=== PATIENT | male | born 1945 | race Two or more races ===

== ENCOUNTER 2025-02-28 08:48 | Inpatient (IN) | payer OTHER ==
[2025-02-28] VITALS (7 sets, daily range): BP systolic 164–174; BP diastolic 76–87; PULSE 68–74; RESP 15–20; TEMP 97.6–99.2; O2SAT 95–98
[~2025-02-28] VITALS: Ht 180.3 cm; Wt 89.4 kg
--- NOTE | 2025-02-28 09:24 | DVH ---
CHEST RADIOGRAPH Indication: +COVID Technique: Single frontal view of the chest was obtained COMPARISON: None FINDINGS: Lines and Tubes: Median sternotomy Lungs: Increased interstitial prominence Pleura: No effusion. No pneumothorax. Cardiomediastinal contours: Unremarkable Bones: Unremarkable IMPRESSION: Possible mild viral pneumonia
--- NOTE | 2025-02-28 10:03 | ED.PDOC ---
SOB-HPI HPI Comments A 79-YEAR-OLD MALE, WITH A PMHX OF HTN, DM, AND MO, PRESENTS TO THE ED VIA WHEELCHAIR WITH A C/C OF COUGH WITH ASSOCIATED SNEEZE, BODY ACHES, AND FATIGUE OF ONE WEEKS AGO. PATIENT REPORTS ADDITIONAL GENERAL WEAKNESS OF 5 DAYS AGO. PER DAUGHTER, PATIENT TESTED POSITIVE FOR COVID LAST WEEKEND VIA AT HOME TEST. PATIENT HAS A POSITIVE FOR COVID AGAIN THIS MORNING. PATIENT HAS NO FURTHER COMPLAINTS AT THIS TIME AND OTHERWISE DENIES FURTHER ASSOCIATED SYMPTOMS OF FEVER, CHILLS, NAUSEA, VOMITING, DIARRHEA, OR CHEST PAIN. PATIENT IS ALERT, ORIENTED X 4, AND HAS STEADY GAIT. Chief Complaint: Body Pain Time Seen by MD: 09:46 Reviewed notes: Nurses Notes, Medications, Allergies Information Source: Patient, Relative (Child) Mode of Arrival: Wheelchair Severity: Moderate Timing: Weeks Duration: Since onset, Days Context: Spontaneous Onset History of: Recent URI Prehospital treatment: None Associated Signs and Symptoms: Cough, Nasal Congestion, Other (COUGH, SNEEZE, BODY ACHES, AND FATIGUE, GENERAL WEAKNESS) If cough with SOB: Non-Productive Past Medical History PAST MEDICAL HISTORY: DM, HTN, MO Surgical History: Unknown Family History Family History: Reviewed,noncontributory to illness, No family hx of Cancer, No family hx of DM, No family hx of Heart areli, No family hx of HTN, No family hx ofKidney areli, No family hx of Liver areli, No family hx of Lung areli, No family hx of Stroke Social History Smoker: Non-Smoker Alcohol: Denies ETOH Use Drugs: Denies Drug Use Lives In: Home Constitutional: reports: fatigue, weakness; denies: chills, diaphoresis, fever, malaise, sweats, others EENTM: reports: nose congestion; denies: blurred vision, double vision, ear bleeding, ear discharge, ear drainage, ear pain, ear ringing, eye pain, eye redness, hearing loss, mouth pain, mouth swelling, nasal discharge, nose bleeding, nose pain, photophobia, tearing, throat pain, throat swelling, voice changes, others Respiratory: reports: cough, others (sneeze, nasal congestion ); denies: hemoptysis, orthopnea, SOB at rest, shortness of breath, SOB with excertion, stridor, wheezing Cardiovascular: denies: chest pain, dizzy spells, diaphoresis, Dyspnea on exertion, edema, irregular heart beat, left arm pain, lightheadedness, palpitations, PND, syncope, others Gastrointestinal: denies: abdomen distended, abdominal pain, blood streaked bowels, constipated, diarrhea, dysphagia, difficulty swallowing, hematemesis, melena, nausea, poor appetite, poor fluid intake, rectal bleeding, rectal pain, vomiting, others Genitourinary: denies: burning, dysuria, flank pain, frequency, hematuria, incontinence, penile discharge, penile sore, pain, testicle pain, testicle swelling, urgency, others Neurological: denies: dizziness, fainting, headache, left sided numbness, left sided weakness, numbness, paresthesia, pre-existing deficit, right sided numbness, right sided weakness, seizure, speech problems, tingling, tremors, weakness, others Musculoskeletal: denies: back pain, gout, joint pain, joint swelling, muscle pain, muscle stiffness, neck pain, others Integumetry: denies: bruises, change in color, change in hair/nails, dryness, laceration, lesions, lumps, rash, wounds, others Allergic/Immunocompromised: denies: Difficulty Healing, Frequent Infections, Hives, Itching, others Hematologic/Lymphatic: denies: anemia, blood clots, easy bleeding, easy bruising, swollen glands, others Endocrine: denies: excessive hunger, excessive sweating, excessive thirst, excessive urination, flushing, intolerance to cold, intolerance to heat, unexplained weight gain, unexplained weight loss, others Psychiatric: denies: anxiety, bipolar disorder, depression, hopeless, panic disorder, schizophrenia, sleepless, suicidal, others All Other Systems: Reviewed and Negative Physical Exam General Appearance: Mild Distress, Normal HEENT: Normal ENT Inspection, PERRL/EOMI, Pharynx Normal, TMs Normal Neck: Full Range of Motion, Non-Tender, Normal, Normal Inspection Respiratory: Chest Non-Tender, Expiration, No Accessory Muscle Use, No Respiratory Distress, Rhonchi Cardiovascular: No Edema, No JVD, No Murmur, No Gallop, Normal Peripheral Pulses, Regular Rate/Rhythm Breast Exam: Deferred Gastrointestinal: No Organomegaly, Non Tender, No Pulsatile Mass, Normal Bowel Sounds, Soft Genitalia: Deferred Pelvic: Deferred Rectal: Deferred Extremities: No calf tenderness, Normal capillary refill, Normal inspection, Normal range of motion, Non-tender, No pedal edema Musculoskeletal : Apperance: Normal Neurologic: Alert, commodity broker II-XII nml as Tested, No Motor Deficits, Normal Affect, Normal Mood, No Sensory Deficits Cerebellar Function: Normal Reflexes: Normal Skin: Dry, Normal Color, Warm Peripheral Pulses: 2+ carotid (R), 2+ carotid (L) Lymphatic: No Adenopathy Was a procedure done? Was a procedure done?: No Differential Dx Differential Diagnosis: Anxiety, Asthma, Bronchitis, Hypertension, Hyponatremia, Pneumonia, Sinusitis, Allergic Rhinitis, URI, Other (POSITIVE COVID INFECTION ) X-Ray, Labs, Meds, VS Vital Signs Date Time Temp Pulse Resp B/P (MAP) Pulse Ox O2 Delivery O2 Flow Rate FiO2 02/28/25 13:00 68 16 97 Room Air* 0 21 02/28/25 13:00 97 Room Air* 0 21 02/28/25 12:00 97.6 68 17 165/79 (107) 94 97.6 02/28/25 08:50 99.6 81 18 114/84 96 99.6 Lab Test 02/28/25 12:29 02/28/25 10:47 02/28/25 10:40 Range/Units POC Glucose 180 H 70-106 mg/dl White Blood Count 7.0 4.4-10.8 10^3/uL Red Blood Count 4.22 L 4.5-5.90 10^6/uL Hemoglobin 12.9 L 13.5-17.5 g/dL Hematocrit 38.6 L 41.0-53.0 % Mean Corpuscular Volume 91.3 80.0-100.0 fL Mean Corpuscular Hemoglobin 30.6 28.0-32.0 pg Mean Corpuscular Hemoglobin Concent 33.5 32.0-36.0 g/dL Red Cell Distribution Width 17.6 H 11.8-14.3 % Platelet Count 285 140-450 10^3/uL Mean Platelet Volume 8.5 6.9-10.8 fL Neutrophils (%) (Auto) 37.0-80.0 % Lymphocytes (%) (Auto) 10.0-50.0 % Monocytes (%) (Auto) 0.0-12.0 % Basophils (%) (Auto) 0.0-2.0 % Neutrophils # (Auto) 1.6-8.6 10 ^3/uL Lymphocytes # (Auto) 0.4-5.4 10 ^3/uL Monocytes # (Auto) 0-1.3 10 ^3/uL Differential Total Cells Counted 100.0 100 Neutrophils % (Manual) 54 37.0-80.0 Band Neutrophils % (Manual) 4 Lymphocytes % (Manual) 19 10.0-50.0 Monocytes % (Manual) 18 H 0-12 Eosinophils % (Manual) 5 0-7 Basophils % (Manual) 0 0.0-2.0 Metamyelocytes % (manual) 0 Myelocytes % (Manual) 0 Promyelocytes % (Manual) 0 Blast Cells % (Manual) 0 Reactive Lymphocytes 0 Platelet Estimate Adequate Erythrocyte Sedimentation Rate 14 0-20 mm/hr Sodium Level 136 136-145 mmol/L Potassium Level 4.4 3.5-5.1 mmol/L Chloride Level 102 98-107 mmol/L Carbon Dioxide Level 25 20-31 mmol/L Anion Gap 9 5-15 Blood Urea Nitrogen 6 L 9-23 mg/dL Creatinine 0.85 0.700-1.30 mg/dL Glomerular Filtration Rate Calc 88 >90 mL/min BUN/Creatinine Ratio 7.1 L 10.0-20.0 Serum Glucose 180 H 74-106 mg/dL Calcium Level 9.4 8.7-10.4 mg/dL Total Bilirubin 0.6 0.2-1.0 mg/dL Aspartate Amino Transferase (AST) 34 13-40 U/L Alanine Aminotransferase (ALT) 40 7-40 U/L Alkaline Phosphatase 99 46-116 U/L Troponin I High Sensitivity 7 </=54 ng/L C-Reactive Protein High Sensitivity 3.83 H <1.0 mg/dL B-Type Natriuretic Peptide 164.68 0-100 pg/mL Total Protein 7.5 5.7-8.2 g/dL Albumin 4.7 3.2-4.8 g/dL Vitamin B12 Level Pending Vitamin D 25-Hydroxy Pending Influenza Type A Antigen Negative Negative Influenza Type B Antigen Negative Negative SARS-CoV-2 Antigen (Rapid) Positive *A NEGATIVE Current Medications Medications (Trade) Dose Ordered Sig/Anna Route Start Time Stop Time Status Last Admin Sodium Chloride 1,000 ml @ 1,000 mls/hr Q1H ONCE IV 02/28/25 12:45 02/28/25 13:44 DC 02/28/25 13:28 Azithromycin 250 ml @ 125 mls/hr ONCE ONCE IV 02/28/25 12:45 02/28/25 14:44 DC 02/28/25 13:28 Ceftriaxone Sodium 50 ml @ 100 mls/hr ONCE ONCE IV 02/28/25 12:45 02/28/25 13:14 DC 02/28/25 13:28 [place] [id number] Ph: [phone] DIAGNOSTIC IMAGING Diagnostic Imaging Report : [id number] Signed PATIENT: CRUZITO QUIÑONEZ ACCT: [id number] UNIT: [id number] : 1945 LOC: ER ROOM / BED: / AGE / SEX: 79 / M ADM STATUS: REG ER SERVICE 0 ORDERING PHYSICIAN: ALEXIS ZAPATA PROCEDURE(s): CXR1 - CHEST XRAY 1 VIEW REASON: +COVID ORDER NUMBER(s): [id number], ACCESSION NUMBER(s): [id number] CHEST RADIOGRAPH Indication: +COVID Technique: Single frontal view of the chest was obtained COMPARISON: None FINDINGS: Lines and Tubes: Median sternotomy Lungs: Increased interstitial prominence Pleura: No effusion. No pneumothorax. Cardiomediastinal contours: Unremarkable Bones: Unremarkable IMPRESSION: Possible mild viral pneumonia X-Ray, Labs, Meds, VS Comment EXTERNAL MEDICAL RECORDS REVIEWED: [NONE] INDEPENDENT HISTORIANS: [NONE] SOCIAL DETERMINANTS OF HEALTH: [NONE] LABS ORDERED: CBC, BMB, UA, COVID REVIEWED AND INTERPRETED RESULTS: + COVID IMAGING ORDERED: CHEST XRAY DISPLAYED MILD VIRAL PNEUMONIA WITH ASSOCIATED COVID TREATMENTS ORDERED: 0.9 NS 1L, ROCEPHIN 1GM IVP AND AZITHROMYCIN 500MG IVP PROCEDURES PERFORMED: NONE CRITICAL CARE TIME: NONE I HAVE DISCUSSED THE PATIENT WITH THE ATTENDING PHYSICIAN DR. LINDSAY AND HE AGREES WITH THE PATIENT'S PLAN OF CARE AND ADMISSION. THIS IS A 79-YEAR-OLD MALE, WITH A PMHX OF HTN, DM, AND MO, WHO PRESENTS TO THE ED VIA WHEELCHAIR WITH A C/C OF COUGH WITH ASSOCIATED SNEEZE, BODY ACHES, GENERAL WEAKNESS, AND FATIGUE OF ONE WEEKS AGO. BASED OFF OF + COVID TEST AND PNEUMONIA, I HAVE DETERMINED THAT PATIENT WILL BE ADMITTED TO THE HOSPITAL FOR FURTHER CARE. Images Reviewed?: Images reviewed and evaluated by me Time of 1ST Reevaluation: 10:18 Reevaluation 1ST: Unchanged Patient Education/Counseling: Diagnosis, Treatment, Need For Follow Up Family Education/Counseling: Diagnosis, Treatment, Need For Follow Up Medical Screening: No EMC Exist At This Time SEPSIS Sepsis Screen Date sepsis recognized/suspect: Feb 28, 2025 Time Sepsis recognized/suspect: 852 Recent Procedure: No On Antibiotic Therapy: No Respiratory Rate >20: No Heart Rate >90: No Temp<36 C (96.8 F) or >38.3 C: No SBP <90 or MAP <65 mmHG: No New Acute Mental Status Change: No Is the patient on CPAP, BIPAP,: No Physician Orders Chest Xray 1 View (02/28/25 09:01) Urinalysis (02/28/25 09:41) Electrocardigram (02/28/25 09:41) Heplock Iv (02/28/25 ) Electrocardigram (02/28/25 12:56) Vital Signs Date Time Temp Pulse Resp B/P (MAP) Pulse Ox O2 Delivery O2 Flow Rate FiO2 02/28/25 13:00 68 16 97 Room Air* 0 21 02/28/25 13:00 97 Room Air* 0 21 02/28/25 12:00 97.6 68 17 165/79 (107) 94 97.6 02/28/25 08:50 99.6 81 18 114/84 96 99.6 Laboratory Tests Test 02/28/25 10:47 White Blood Count 7.0 10^3/uL (4.4-10.8) Medications Medications Dose Ordered Sig/Anna Route Start Time Stop Time Status Last Admin Dose Admin Azithromycin 250 ml @ 125 mls/hr ONCE ONCE IV 02/28/25 12:45 02/28/25 14:44 DC 02/28/25 13:28 Ceftriaxone Sodium 50 ml @ 100 mls/hr ONCE ONCE IV 02/28/25 12:45 02/28/25 13:14 DC 02/28/25 13:28 Sodium Chloride 1,000 ml @ 1,000 mls/hr Q1H ONCE IV 02/28/25 12:45 8/16/25 13:44 DC 02/28/25 13:28 Departure 1 Departure Time of Disposition: 12:35 Impression: Primary Impression: SARS-CoV-2 positive Additional Impressions: General weakness Viral pneumonia Disposition: ADMITTED INPATIENT Condition: Serious Additional Instructions: Critical Care Note Critical Care Time?: No Stability Stability form required: Yes Unstable for transfer: Requires medication, ED Physician Assesment, Possible rapid decline Heart Score Heart Score: Heart Score Response (Comments) Value History Slightly Suspicious 0 EKG N/A 0 Age >65 2 Risk Factors N/A 0 Troponin N/A 0 Total 2 I personally scribed for BENNYHANNAA PA ([email or web address]) on 02/28/25 at 10:03. Electronically submitted by Sofya Cleveland ([employer]). I personally scribed for BENNYSHONNAXIA PA ([email or web address]) on 02/28/25 at 10:04. Electronically submitted by Sofya Cleveland ([employer]). I personally scribed for BENNYYINXIA PA ([email or web address]) on 02/28/25 at 10:05. Electronically submitted by Sofya Cleveland ([employer]). I personally scribed for BENNYYINXIA PA ([email or web address]) on 02/28/25 at 12:46. Electronically submitted by Sofya Cleveland ([employer]). I personally scribed for BENNYSHONNAXIA PA ([email or web address]) on 02/28/25 at 15:37. Electronically submitted by Sofya Cleveland ([employer]). BENNYSHONNAXIA PA Feb 28, 2025 10:03
[2025-02-28 11:15] LABS: Hematocrit 38.6 % (41.0-53.0); Hemoglobin 12.9 g/dL (13.5-17.5); Mean Corpuscular Hemoglobin 30.6 pg (28.0-32.0); Mean Corpuscular Volume 91.3 fL (80.0-100.0)
[2025-02-28 11:37] LABS: Alanine Aminotransferase 40 U/L (7-40); Albumin 4.7 g/dL (3.2-4.8); Alkaline Phosphatase 99 U/L (46-116); Anion Gap 9 (5-15); BUN/Creatinine Ratio 7.1 (10.0-20.0); Bilirubin, Total 0.6 mg/dL (0.2-1.0); Blood Urea Nitrogen 6 mg/dL (9-23); Calcium 9.4 mg/dL (8.7-10.4); Carbon Dioxide 25 mmol/L (20-31); Chloride 102 mmol/L (98-107); Glucose 180 mg/dL (74-106); Potassium 4.4 mmol/L (3.5-5.1); Sodium 136 mmol/L (136-145); Total Protein 7.5 g/dL (5.7-8.2)
[2025-02-28 11:40] LABS: Total Cells Counted 100.0 (100)
[2025-02-28 12:23] LABS: COVID19 ANTIGEN SOFIA FIA POSITIVE (NEGATIVE)
--- NOTE | 2025-02-28 13:09 | DVHHPRES ---
History of Present Illness Resident Creating Document: ISAIAS BREEN RESIDENT History of Present Illness Mr. Gonzalez is 79-year-old male with possible heart failure with reduced ejection fraction, diabetes mellitus type 2, hypertension, CAD status post 2023 who was brought in by her daughter for the evaluation of body aches, generalized weakness, runny nose and a cough. Patient lives in [place], took a flight to [place] to meet her daughter 6 days back and started experiencing for muscle sores,, body ache fatigue a day later, patient was tested positive for COVID, and since then he has been experiencing low appetite and has been getting more tired. Has been experiencing low-grade fever but denies chills, nausea, vomiting, shortness of breaths at this time. Patient does have trace pitting edema. Patient got [employer] vaccine for COVID 19 in 2020 and 2021 Past medical history:possible heart failure with reduced ejection fraction, diabetes mellitus type 2, hypertension, CAD status post 2023 Past surgical history: CAD status post 1 Home medications: Losartan 100 mg b.i.d., amlodipine 10 mg HS, metoprolol succinate 100 mg daily, sitagliptin 100 mg daily, spironolactone 25 mg daily, atorvastatin 20 mg daily PCP: Ed Michel, renal case manager Ed Michel Social history: Lives in [place], which has been daughter in , quit smoking 1970s, former heavy smoker, denies drinking or drug use Patient seen and examined in the ER with 3. With bilateral basilar crackles and trace pitting edema. On room air. Smoke: Quit ALCOHOL: none Drugs: None Lives: with Family Review of Systems Constitutional: Yes: Weakness Respiratory: Cough, Dry, Shortness of breath Cardiovascular: Edema Allergies: Coded Allergies: NO KNOWN ALLERGIES (Unverified , 03/01/25) as per patient Exam Vital Signs Vital Signs Date Time Temp Pulse Resp B/P (MAP) Pulse Ox O2 Delivery O2 Flow Rate FiO2 02/28/25 12:00 97.6 68 17 165/79 (107) 94 97.6 Exam Elderly male patient lying comfortably in the bed, no acute distress General: Well-built, afebrile, mild scleral icterus seen, mucosae are moist Cardiovascular: Regular S1 and S2. No murmurs, gallops or rubs. No JVD elevation. Trace bilateral pitting edema Respiratory: Bilateral basilar coarse crackles heard on auscultation, on room air Abdomen: Soft, nontender, nondistended, normoactive bowel sounds, no rebound tenderness, no organomegaly, no masses Genitourinary: Deferred MSK/skin: Mobilizes 4 limbs. Skin is dry and warm Neurological: No motor, no sensitive deficits, normal speech. Pupils are isocoric and reactive. Psych/Mental Status: A/Ox3 Labs/Xrays Labs Test 02/28/25 12:29 02/28/25 10:47 02/28/25 10:40 Range/Units POC Glucose 180 H 70-106 mg/dl White Blood Count 7.0 4.4-10.8 10^3/uL Red Blood Count 4.22 L 4.5-5.90 10^6/uL Hemoglobin 12.9 L 13.5-17.5 g/dL Hematocrit 38.6 L 41.0-53.0 % Mean Corpuscular Volume 91.3 80.0-100.0 fL Mean Corpuscular Hemoglobin 30.6 28.0-32.0 pg Mean Corpuscular Hemoglobin Concent 33.5 32.0-36.0 g/dL Red Cell Distribution Width 17.6 H 11.8-14.3 % Platelet Count 285 140-450 10^3/uL Mean Platelet Volume 8.5 6.9-10.8 fL Neutrophils (%) (Auto) 37.0-80.0 % Lymphocytes (%) (Auto) 10.0-50.0 % Monocytes (%) (Auto) 0.0-12.0 % Basophils (%) (Auto) 0.0-2.0 % Neutrophils # (Auto) 1.6-8.6 10 ^3/uL Lymphocytes # (Auto) 0.4-5.4 10 ^3/uL Monocytes # (Auto) 0-1.3 10 ^3/uL Differential Total Cells Counted 100.0 100 Neutrophils % (Manual) 54 37.0-80.0 Band Neutrophils % (Manual) 4 Lymphocytes % (Manual) 19 10.0-50.0 Monocytes % (Manual) 18 H 0-12 Eosinophils % (Manual) 5 0-7 Basophils % (Manual) 0 0.0-2.0 Metamyelocytes % (manual) 0 Myelocytes % (Manual) 0 Promyelocytes % (Manual) 0 Blast Cells % (Manual) 0 Reactive Lymphocytes 0 Platelet Estimate Adequate Sodium Level 136 136-145 mmol/L Potassium Level 4.4 3.5-5.1 mmol/L Chloride Level 102 98-107 mmol/L Carbon Dioxide Level 25 20-31 mmol/L Anion Gap 9 5-15 Blood Urea Nitrogen 6 L 9-23 mg/dL Creatinine 0.85 0.700-1.30 mg/dL Glomerular Filtration Rate Calc 88 >90 mL/min BUN/Creatinine Ratio 7.1 L 10.0-20.0 Serum Glucose 180 H 74-106 mg/dL Calcium Level 9.4 8.7-10.4 mg/dL Total Bilirubin 0.6 0.2-1.0 mg/dL Aspartate Amino Transferase (AST) 34 13-40 U/L Alanine Aminotransferase (ALT) 40 7-40 U/L Alkaline Phosphatase 99 46-116 U/L Troponin I High Sensitivity 7 </=54 ng/L Total Protein 7.5 5.7-8.2 g/dL Albumin 4.7 3.2-4.8 g/dL Influenza Type A Antigen Negative Negative Influenza Type B Antigen Negative Negative SARS-CoV-2 Antigen (Rapid) Positive *A NEGATIVE SEPSIS Sepsis Screen Date sepsis recognized/suspect: Feb 28, 2025 Time Sepsis recognized/suspect: 0853 Recent Procedure: No On Antibiotic Therapy: No Respiratory Rate >20: No Heart Rate >90: No Temp<36 C (96.8 F) or >38.3 C: No SBP <90 or MAP <65 mmHG: No New Acute Mental Status Change: No Is the patient on CPAP, BIPAP,: No Physician Orders Chest Xray 1 View (02/28/25 09:01) Urinalysis (02/28/25 09:41) Electrocardigram (02/28/25 09:41) Heplock Iv (02/28/25 ) Sodium Chloride 0.9% (02/28/25 12:45) Azithromycin 500mg/ 250ml (Zithromax 50 (02/28/25 12:45) Ceftriaxone 1gm/50ml D5w (Rocephin) (02/28/25 12:45) Electrocardigram (02/28/25 12:56) Vital Signs Date Time Temp Pulse Resp B/P (MAP) Pulse Ox O2 Delivery O2 Flow Rate FiO2 02/28/25 12:00 97.6 68 17 165/79 (107) 94 97.6 02/28/25 08:50 99.6 81 18 114/84 96 99.6 Laboratory Tests Test 02/28/25 10:47 White Blood Count 7.0 10^3/uL (4.4-10.8) Assessment/Plan Assessment/Plan Sepsis d/t Superimposed Gram-positive and Gram-negative pneumonia Acute COVID-19 infection On room air IV ceftriaxone and IV azithromycin 02/28 MRSA nares pending COVID positive Flu negative Nebulized treatments q.6 hourly Sputum culture pending 500ml NS at 100ml/hr lactic 2.3 Likely Acute on chronic systolic congestive heart failure exacerbation-NYHA class 3-secondary to above Hypertensive heart disease History of CAD with 1 2023 BNP pending EKG pending Troponins unremarkable Strict I&Os Chest x-ray shows congestion Echocardiogram pending Continue guideline directed medical therapy with losartan, metoprolol, spironolactone lasix after getting euvolemia Diabetes mellitus type 2-A1c unknown Holding patient's home medication sitagliptin Mild ISS A1c pending Dyslipidemia Atorvastatin 20 mg HS Former nicotine dependence Counseled regarding cessation for more than 15 minutes DVT prophylaxis: Lovenox 40 mg sc daily Plan discussed with patient, daughter at ER in which all questions have been answered Goals of care discussed with patient in detail, for more than 18 minutes, full code status. Case discussed with Plan discussed with: Patient, Daughter (at er) My Orders Orders - ISAIAS BREEN Procedure Category Date Status Time Electrocardigram EKG 02/28/25 Logged 12:56 Date of Service: Feb 28, 2025 Billing Provider: GAETANO BETANCUR MD Common Visit Codes: [id number] INP/OBS CARE (HIGH) ISAIAS BREEN Feb 28, 2025 13:09 GAETANO BETANCUR MD Mar 04, 2025 22:55
[2025-02-28] MEDS: cefTRIAXone 1GM/50ML D5W 50 ML IV ONE (13:28)
[2025-02-28] MEDS: SODIUM CHLORIDE 0.9% 1,000 ML IV ONE (13:28)
[2025-02-28] MEDS: AZITHROMYCIN 500MG/ 250ML 250 ML IV ONE (13:28)
[2025-02-28] MEDS ORDERED: ALBUTEROL SULF 2.5 MG/0.5ML(0.5%) NEB SOLN NEB SCH (14:00)
[2025-02-28] MEDS ORDERED: HYDROcodone-ACET 5/325MG TAB PO PRN (14:00)
[2025-02-28] MEDS ORDERED: IPRATROPIUM BROM 0.5 MG/2.5ML INH SOL NEB SCH (14:00)
[2025-02-28] MEDS ORDERED: MORPHINE SULFATE INJ 2 MG/ml SYRG IV PRN (14:00)
[2025-02-28 14:41] LABS: Lactic Acid w/Reflex 2.3 mmol/L (0.4-2.0)
[2025-02-28] MEDS ORDERED: SODIUM CHLORIDE 0.9% 500 ML IV ONE ×2 (15:30→15:45)
[2025-02-28] MEDS ORDERED: METOPROLOL SUCCINATE XL 50 MG TAB PO ONE (15:45)
[2025-02-28] MEDS ORDERED: LOSARTAN POTASSIUM 50 MG TAB PO ONE (15:45)
[2025-02-28 16:57] LABS: INR 1.08 (0.9-1.15); Partial Thromboplastin Time 30.3 SEC (24.5-34.5); Prothrombin Time 11.4 sec (9.3-11.8)
[2025-03-01] VITALS (12 sets, daily range): BP systolic 158–184; BP diastolic 79–98; PULSE 64–82; RESP 14–20; TEMP 98–98.9; O2SAT 90–98
[2025-03-01] MEDS: ATORVASTATIN 20 MG TAB PO SCH (00:21)
[2025-03-01] MEDS: ALBUTEROL SULF HFA 90MCG INH 200DOSE IN SCH (02:44)
[2025-03-01 08:06] LABS: Hematocrit 37.1 % (41.0-53.0); Hemoglobin 12.5 g/dL (13.5-17.5); Mean Corpuscular Hemoglobin 30.5 pg (28.0-32.0); Mean Corpuscular Volume 91.1 fL (80.0-100.0)
[2025-03-01 08:17] LABS: Anion Gap 9 (5-15); Calcium 9.3 mg/dL (8.7-10.4); Carbon Dioxide 26 mmol/L (20-31); Chloride 101 mmol/L (98-107); Potassium 4.0 mmol/L (3.5-5.1); Sodium 136 mmol/L (136-145)
[2025-03-01 08:23] LABS: BUN/Creatinine Ratio 10.3 (10.0-20.0); Blood Urea Nitrogen 8 mg/dL (9-23); Glucose 139 mg/dL (74-106)
[2025-03-01 08:35] LABS: Total Cells Counted 100.0 (100)
[2025-03-01] MEDS: SPIRONOLACTONE 25 MG TAB PO SCH (09:17)
[2025-03-01] MEDS: cefTRIAXone 1GM/50ML D5W 50 ML IV SCH (09:17)
[2025-03-01] MEDS: LOSARTAN POTASSIUM 50 MG TAB PO SCH (09:18)
[2025-03-01] MEDS: METOPROLOL SUCCINATE XL 50 MG TAB PO SCH (09:18)
[2025-03-01] MEDS: DOXYCYCLINE 100MG/100ML 100 ML IV SCH (12:45)
[2025-03-01] MEDS: hydrALAZINE HCL 20 MG/ML VL IV PRN (13:26)
--- NOTE | 2025-03-01 16:32 | DVHPN2 ---
Subjective Patient was seen and evaluated by me currently on respiratory isolation for COVID-19 pneumonia. Plan of care discussed with the patient's bedside RN as well as patient's daughter at bedside. Patient is currently denies any shortness of breath does complaining of some nasal stuffiness. Changes from previous H/P or p: No Changes Cardiovascular: Edema Respiratory: Cough, Dry, Shortness of breath Objective Vitals Vital Signs Date Time Temp Pulse Resp B/P (MAP) Pulse Ox O2 Delivery O2 Flow Rate FiO2 03/01/25 14:15 97 Room Air 0.0 03/01/25 14:15 21 03/01/25 14:15 78 16 03/01/25 13:26 184/89 03/01/25 13:03 98.1 98.1 Intake/Output Intake and Output 03/01/25 07:00 Intake Total 1860 ml Output Total 900 ml Balance 960 ml Intake Oral 560 ml IV Total 1300 ml Output Urine Total 900 ml # Voids 1 Exam HEENT pupils are reactive Neck is supple CV is S1-S2 regular rate and rhythm Respiratory diminished breath sounds bases GI positive bowel sound Extremity no edema RELIGIOUS EDUCATION COORDINATOR no motor deficit. Medications Current Medications Medications Dose Ordered Sig/Anna Route Start Time Stop Time Status Last Admin Dose Admin Ceftriaxone Sodium 50 ml @ 100 mls/hr DAILY@09 IV 03/01/25 09:00 03/01/25 09:17 100 MLS/HR Losartan Potassium 100 mg DAILY PO 03/01/25 10:00 03/01/25 09:18 100 MG Metoprolol Succinate 50 mg DAILY PO 03/01/25 10:00 03/01/25 09:18 50 MG Spironolactone 25 mg DAILY PO 03/01/25 10:00 03/01/25 09:17 25 MG Atorvastatin Calcium 20 mg HS PO 02/28/25 22:00 03/01/25 00:21 20 MG Ipratropium [place] 0.5 mg Q6HWA NEB 02/28/25 14:00 UNV Albuterol 2.5 mg Q6HR NEB 02/28/25 14:00 UNV Acetaminophen 500 mg Q4HPRN PRN PO 02/28/25 14:00 Acetaminophen/ Hydrocodone Bitart 1 tab Q6HPRN PRN PO 02/28/25 14:00 Morphine Sulfate 1 mg Q4HPRN PRN IV 02/28/25 14:00 Albuterol 180 mcg TID IN 02/28/25 22:00 03/01/25 14:15 180 MCG Doxycycline Hyclate 100 ml @ 50 mls/hr Q12H IV 03/01/25 12:45 03/01/25 12:45 50 MLS/HR Hydralazine HCl 10 mg Q4HP PRN IV 03/01/25 12:45 03/01/25 13:26 10 MG Laboratory Results Laboratory Tests 03/01/25 05:40 Chemistry Test 03/01/25 05:40 Calcium Level 9.3 mg/dL (8.7-10.4) Microbiology Microbiology Date/Time Source Procedure Growth Status 03/01/25 00:27 Nose MRSA Screen - Final Complete Assessment/Plan Assessment/Plan 79-year-old male with a known history of CAD status post PCI with a one drug eluting stent, diabetes mellitus type 2, hypertension, dyslipidemia , congestive heart failure initially presented to the hospital with shortness of breaths , cough, sneezing, flu-like symptoms found to have 1. Acute viral pneumonia with a positive COVID-19 2. Suspected Gram-positive/Gram-negative pneumonia 3. CAD status post PCI with a one drugs eluting stent 4. Congestive heart failure unspecified currently not in exacerbation 5. Diabetes mellitus type 2 6. Hypertension 7. Dyslipidemia -continue current medication, IV antibiotics, respiratory isolation, -patient is currently on room air, no indication for any COVID-19 treatment besides vitamin supplements. Plan discussed with: Patient, Daughter My Orders Orders - EVER RECIO MD Procedure Category Date Status Time Doxycycline PHA 03/01/25 In Process 100mg/100ml 12:45 Hydralazine Injection PHA 03/01/25 In Process (Apresoline Inject 12:45 * Infectious [place]- CONS 03/01/25 Transmitted Erick Case 12:37 Date of Service: Mar 01, 2025 Billing Provider: EVER RECIO MD Common Visit Codes: [id number] INP/OBS CARE(MOD) EVER RECIO MD Mar 01, 2025 16:32
[2025-03-01] MEDS: CHOLECALCIFEROL (VITD3) 1,000UNIT=25mCg TAB PO SCH (17:11)
[2025-03-01] MEDS: ZINC SULFATE 220mg CAP or TAB PO ONE (17:12)
[2025-03-01] MEDS: ASCORBIC ACID 500 MG TAB PO SCH (17:12)
--- NOTE | 2025-03-01 20:50 | DVHSR ---
APPROVED REPORT EXAM: Two-dimensional and M-mode echocardiogram with Doppler and color Doppler. Blood Pressure: 159/91 mmHg INDICATION Congestion Hx of CAD Surgery/Intervention CABG: RISK FACTORS Height: 5' 11", Weight: 194 DIMENSIONS LVDd4.4 (3.8-5.7cm)LA (2D)4.3 (1.9-4.0cm)Aortic Root3.7 (2.0-3.7cm) LVDs3.3 (2.5-4.0cm)LA (MM) (1.9-4.0cm)Aortic Cusp Exc1.7 (1.5-2.0cm) EF (%) 50.0 (55-70%)Rt. Atrium4.3 (1.9-4.0cm)Asc. Aorta cm IVSd1.3 (0.7-1.1cm)RV (D) (1.8-2.4cm) PWd1.3 (0.7-1.1cm) Mitral Valve MitralMitral Stenosis E wave0.50m/sMV Mean GR.mmHg A wave0.60m/sMV Peak GR.mmHg E/A ratio0.82D MVAcm2 Aortic Valve Aortic ValveAortic Stenosis V10.70m/Sharyn Mean GR.3mmHg V21.20m/Sharyn Peak GR.6mmHg LVOT Diameter2.5 (1.8-2.4cm)Doppler AVA2.86cm2 AI P 1/2 Nmgq820.13ms Pulmonic Valve V20.50m/s Tricuspid Valve TR Velocity2.10m/s [id number] Conclusion LOW NORMAL LV EJECTION FRACTION AND IS 50% SLIGHTLY DILATED LA AND RA RVSP IS NORMAL CALCIFIED AORTIC LEAFLETS NO EFFUSION NORMAL MV,TV AND PV
[2025-03-02] VITALS (11 sets, daily range): BP systolic 149–185; BP diastolic 64–85; PULSE 75–98; RESP 14–18; TEMP 97.8–98.8; O2SAT 93–99
[2025-03-02] MEDS: ZINC SULFATE 220mg CAP or TAB PO SCH (09:01)
--- NOTE | 2025-03-02 11:56 | DVHINCON2 ---
Date of service: Mar 02, 2025 Family History: Alcoholism Cardiovascular disease G8 MOTHER G8 FATHER Allergies: Coded Allergies: NO KNOWN ALLERGIES (Unverified , 03/01/25) as per patient Home Meds Active Scripts Albuterol Sulfate (VENTOLIN MDI) 90 Mcg Ih, 90 MCG IN Q4HP PRN, #1 INH Prov:EVER RECIO MD 03/02/25 Doxycycline (Monohydrate) (Doxycycline) 100 Mg Cap, 100 MG PO BID, #14 CAP Prov:EVER RECIO MD 03/02/25 Current Medications Current Medications Medications (Trade) Dose Ordered Sig/Anna Route PRN Reason Start Time Stop Time Status Last Admin Doxycycline Hyclate 100 ml @ 50 mls/hr Q12H IV 03/01/25 12:45 03/01/25 21:14 Hydralazine HCl (Apresoline Injection) 10 mg Q4HP PRN IV SBP>160 03/01/25 12:45 03/02/25 05:25 Cholecalciferol (Vitamin D3 Tablet) 4,000 unit DAILY PO 03/01/25 16:45 03/02/25 09:00 Ascorbic Acid (Vitamin C Tablet) 1,000 mg DAILY PO 03/01/25 16:45 03/02/25 09:01 Zinc Sulfate 220 mg DAILY PO 03/02/25 10:00 03/02/25 09:01 Vital Signs Vital Signs Date Time Temp Pulse Resp B/P (MAP) Pulse Ox O2 Delivery O2 Flow Rate FiO2 03/02/25 10:25 95 Room Air* 0 21 03/02/25 09:02 94 149/73 03/02/25 09:00 98.2 18 98.2 Labs/Diagnostic Data Labs Test 03/01/25 05:40 02/28/25 16:26 02/28/25 14:05 02/28/25 12:29 Range/Units White Blood Count 5.2 # 4.4-10.8 10^3/uL Red Blood Count 4.08 L 4.5-5.90 10^6/uL Hemoglobin 12.5 L 13.5-17.5 g/dL Hematocrit 37.1 L 41.0-53.0 % Mean Corpuscular Volume 91.1 80.0-100.0 fL Mean Corpuscular Hemoglobin 30.5 28.0-32.0 pg Mean Corpuscular Hemoglobin Concent 33.5 32.0-36.0 g/dL Red Cell Distribution Width 17.7 H 11.8-14.3 % Platelet Count 267 140-450 10^3/uL Mean Platelet Volume 8.7 6.9-10.8 fL Neutrophils (%) (Auto) 37.0-80.0 % Lymphocytes (%) (Auto) 10.0-50.0 % Monocytes (%) (Auto) 0.0-12.0 % Basophils (%) (Auto) 0.0-2.0 % Neutrophils # (Auto) 1.6-8.6 10 ^3/uL Lymphocytes # (Auto) 0.4-5.4 10 ^3/uL Monocytes # (Auto) 0-1.3 10 ^3/uL Differential Total Cells Counted 100.0 100 Neutrophils % (Manual) 37 37.0-80.0 Band Neutrophils % (Manual) 3 Lymphocytes % (Manual) 32 10.0-50.0 Monocytes % (Manual) 20 H 0-12 Eosinophils % (Manual) 8 H 0-7 Basophils % (Manual) 0 0.0-2.0 Metamyelocytes % (manual) 0 Myelocytes % (Manual) 0 Promyelocytes % (Manual) 0 Blast Cells % (Manual) 0 Reactive Lymphocytes 0 Platelet Estimate Adequate Sodium Level 136 136-145 mmol/L Potassium Level 4.0 3.5-5.1 mmol/L Chloride Level 101 98-107 mmol/L Carbon Dioxide Level 26 20-31 mmol/L Anion Gap 9 5-15 Blood Urea Nitrogen 8 L 9-23 mg/dL Creatinine 0.78 0.700-1.30 mg/dL Glomerular Filtration Rate Calc 91 >90 mL/min BUN/Creatinine Ratio 10.3 10.0-20.0 Serum Glucose 139 H 74-106 mg/dL Calcium Level 9.3 8.7-10.4 mg/dL Prothrombin Time 11.4 9.3-11.8 sec Prothrombin Time INR 1.08 0.9-1.15 Activated Partial Thromboplast Time 30.3 24.5-34.5 SEC Lactic Acid Level 0.9 0.4-2.0 mmol/L Hemoglobin A1c 6.0 H <5.7 % A1C Magnesium Level 1.8 1.6-2.6 mg/dL Thyroid Stimulating Hormone (TSH) 0.60 0.55-4.78 uIU/mL POC Glucose 180 H 70-106 mg/dl Test 02/28/25 10:47 02/28/25 10:40 Range/Units Erythrocyte Sedimentation Rate 14 0-20 mm/hr Total Bilirubin 0.6 0.2-1.0 mg/dL Aspartate Amino Transferase (AST) 34 13-40 U/L Alanine Aminotransferase (ALT) 40 7-40 U/L Alkaline Phosphatase 99 46-116 U/L Troponin I High Sensitivity 7 </=54 ng/L C-Reactive Protein High Sensitivity 3.83 H <1.0 mg/dL B-Type Natriuretic Peptide 164.68 0-100 pg/mL Total Protein 7.5 5.7-8.2 g/dL Albumin 4.7 3.2-4.8 g/dL Vitamin B12 Level 450 211-911 pg/mL Vitamin D 25-Hydroxy 31.2 30.0-100 ng/mL Influenza Type A Antigen Negative Negative Influenza Type B Antigen Negative Negative SARS-CoV-2 Antigen (Rapid) Positive *A NEGATIVE Microbiology Date/Time Source Procedure Growth Status 03/01/25 00:27 Nose MRSA Screen - Final Complete Problems(with codes): (1) General weakness (2) Viral pneumonia (3) SARS-CoV-2 positive Plan/Recommendation ASSESSMENT AND PLAN: ID Problem List: \\-- Congestive heart failure (reduced ejection fraction, history of CHF exacerbation) \\-- Diabetes mellitus type 2 \\-- Coronary artery disease (history of drug-eluting stent placement in 2023) \\-- Recent COVID-19 infection (now negative) \\-- Possible COVID or community-acquired pneumonia Assessment: This is a 79 y.o. male with a past medical history of CHF (reduced EF), type 2 diabetes, coronary artery disease s/p drug-eluting stent (2023), who presents with generalized body aches, weakness, runny nose, cough, fatigue, low appetite, and increased tiredness, following recent travel to [place] to visit his daughter. Onset of symptoms began approximately six days ago. Patient was initially COVID-19 positive on 02/28/2025, but repeat testing on 03/02/2025 is now negative. He was afebrile, with hypoxia absent on current exam (O2 sat 94% on room air). On exam, there is trace bilateral pitting edema and pulmonary crackles. Labs reveal normal white blood cell count and renal function. Chest X-ray showed mild viral pneumonia initially; repeat imaging shows no acute disease. Influenza A and B are negative. Echocardiogram on 03/01 reveals normal EF (50%), slightly dilated left atrium and right ventricle, RVSP normal, calcified aortic leaflets. Patient is being managed empirically for pneumonia with ceftriaxone and doxycycline to complete a five-day course, as superimposed bacterial pneumonia is in the differential. Patient is monitored for clinical stability. No remdesivir or steroid therapy initiated at this time, as there are no indications for such (hypoxia, fever, increasing clinical severity). Continue to defer to the primary team for management of CHF exacerbation. If patient becomes hypoxic, febrile, or hypertensive, initiate steroids and consider remdesivir as appropriate. Plan: \\-- Continue ceftriaxone and doxycycline to complete 5-day course for presumed community-acquired pneumonia. \\-- Monitor for clinical decompensation: hypoxia, fever, or new clinical symptoms. \\-- Hold remdesivir and steroids unless patient becomes hypoxic, febrile, or hypertensive. \\-- Defer CHF exacerbation management to primary team. \\-- No further [id number] therapies indicated at present. \\-- Discharge may be considered if patient remains clinically stable and comple ortega course of antibiotics. Isolation Precautions: Standard \\*Assessment and plan were discussed with the patient as written above \\*Plan is subject to change pending incorporation of new incoming information/diagnostics. Updates may be added as addendum at the bottom (OR TOP) of this note Thank you for interesting consult. ID will continue to follow. Please contact Infectious Disease for any questions or concerns. Sam Case M.D. [facility] Ph: ? Teams text: [email or web address] Electronically signed by: Sam Case MD, 03/02/2025 \\ History: The patient's chart and medications were reviewed in detail and the patient was seen and examined. History obtained from: patient Mr. Rodri Gonzalez is a 79 y.o. male with a past medical history of CHF (reduced EF), type 2 diabetes, coronary artery disease s/p drug-eluting stent in 2023, who presents with body aches, generalized weakness, runny nose, cough, fatigue, and decreased appetite following recent travel to [place]. Onset of symptoms approximately six days ago. Tested positive for COVID-19 initially, now negative. Denies fever. Noted to have trace pitting edema and pulmonary crackles on exam. Review of Systems: A complete 10-system review of systems was completed and negative except as noted in the HPI or here. ROS: -CONSTITUTIONAL: Admits fatigue, muscle aches, low appetite. Denies weight loss, fever, and chills. -HEENT: Denies changes in vision and hearing. -RESPIRATORY: Admits cough, runny nose. Denies shortness of breath. -CARDIOVASCULAR: Denies chest pain or palpitations. -GASTROINTESTINAL: Denies abdominal pain, nausea, vomiting, and diarrhea. -GENITOURINARY: Denies dysuria and urinary frequency. -MUSCULOSKELETAL: Admits generalized muscle aches. Denies joint pain. -SKIN: Denies rash and pruritus. -NEUROLOGICAL: Denies headache and syncope. -PSYCHIATRIC: Denies recent changes in mood, anxiety, or depression. Past Medical History: Diagnosis Date Congestive heart failure (reduced ejection fraction) Diabetes mellitus type 2 Coronary artery disease, s/p drug-eluting stent (2023) Past Surgical History: History reviewed. No pertinent surgical history. Home Medications: Prior to Admission medications Medication Sig losartan Dose/frequency not specified amlodipine Dose/frequency not specified metoprolol Dose/frequency not specified sitagliptin Dose/frequency not specified (likely "sitagliptin," corrected spelling) spironolactone Dose/frequency not specified atorvastatin Dose/frequency not specified Patient not taking: Not specified Allergies: No Known Allergies Family History: Not provided in transcript. Social History: Social History Socioeconomic History Marital status: Not provided Number of children: Not provided Years of education: Not provided Highest education level: Not provided Occupational History Not provided Tobacco Use Former smoker, quit in Substance and Sexual Activity Alcohol use: Not specified Drug use: Denied IV drug use: Denied Other Topics Concern Not provided Social Determinants of Health: Not provided in transcript. Objective: Vital Signs on Arrival: Temp: 97.6 F BP: 165/79 Pulse: 68 Resp: 17 SpO2: 94% (room air) Most Recent Vital Signs: Not provided in transcript. Admission Weight: Not provided in transcript. BMI: Not provided in transcript. Physical Exam: General: NAD Neck: Supple. No masses. HEENT: PERRL. Normal lids and conjunctiva. Moist mucous membranes. Oropharynx without lesions, exudates or excessive erythema. Normal appearance of the external aspects of the nose and ears. Heart: Regular rhythm, normal rate. No murmur. Trace bilateral pitting edema. Lungs: Normal respiratory effort. Crackles present bilaterally. No wheezes. Abdomen: Soft. Non-tender. Non-distended. No masses or abdominal hernia. Msk: No digital cyanosis. Normal strength and tone in all 4 limbs Skin: Warm and dry, no rashes. Neuro: Alert. No facial droop or slurred speech. Extra-ocular movements intact. Sensation intact to soft touch in all 4 limbs. Psych: Appropriate mood. Full affect. Oriented to person, place, time, and situation. Lines: Active Lines: Not provided in transcript. Diagnostic Studies: Available diagnostic studies were reviewed personally. Significant relevant results and findings are outlined below or addressed in the Assessment and Plan above. Pertinent Imaging: Recent Results Chest X-ray Initial shows mild viral pneumonia Repeat chest X-ray shows no acute disease Echocardiogram (03/01/2025) Normal ejection fraction (50%), slightly dilated left atrium and right ventricle, RVSP normal, calcified aortic valve leaflets Laboratory Findings: -COVID-19: Positive on 02/28/2025, negative on 03/02/2025 -Influenza A/B: Negative -Sodium: 136 -BUN: 8 -Creatinine: 0.78 -WBC: 7 -Platelet: 285 -Hemoglobin: 12.9 -Urinalysis: Negative Electronically signed by: Sam Case MD, 03/02/2025 Plan discussed with: Patient SAM CASE MD Mar 02, 2025 11:56
[2025-03-02] MEDS: ACETAMINOPHEN 500 MG TAB or CAP PO PRN (15:50)
[2025-03-02] MEDS ORDERED: DOXY100C79 PO (16:21)
[2025-03-02] MEDS ORDERED: ALBUAER3 IN (16:21)
--- NOTE | 2025-03-02 16:22 | DVHDS2 ---
Discharge Summary Date of Admission Feb 28, 2025 at 13:07 Date of Discharge: Mar 02, 2025 Labs/Diagnostic Data: Laboratory Results Test 03/01/25 05:40 02/28/25 16:26 02/28/25 14:05 02/28/25 12:29 White Blood Count 5.2 10^3/uL (4.4-10.8) Red Blood Count 4.08 10^6/uL (4.5-5.90) Hemoglobin 12.5 g/dL (13.5-17.5) Hematocrit 37.1 % (41.0-53.0) Mean Corpuscular Volume 91.1 fL (80.0-100.0) Mean Corpuscular Hemoglobin 30.5 pg (28.0-32.0) Mean Corpuscular Hemoglobin Concent 33.5 g/dL (32.0-36.0) Red Cell Distribution Width 17.7 % (11.8-14.3) Platelet Count 267 10^3/uL (140-450) Mean Platelet Volume 8.7 fL (6.9-10.8) Neutrophils (%) (Auto) % (37.0-80.0) Lymphocytes (%) (Auto) % (10.0-50.0) Monocytes (%) (Auto) % (0.0-12.0) Basophils (%) (Auto) % (0.0-2.0) Neutrophils # (Auto) 10 ^3/uL (1.6-8.6) Lymphocytes # (Auto) 10 ^3/uL (0.4-5.4) Monocytes # (Auto) 10 ^3/uL (0-1.3) Differential Total Cells Counted 100.0 (100) Neutrophils % (Manual) 37 (37.0-80.0) Band Neutrophils % (Manual) 3 Lymphocytes % (Manual) 32 (10.0-50.0) Monocytes % (Manual) 20 (0-12) Eosinophils % (Manual) 8 (0-7) Basophils % (Manual) 0 (0.0-2.0) Metamyelocytes % (manual) 0 Myelocytes % (Manual) 0 Promyelocytes % (Manual) 0 Blast Cells % (Manual) 0 Reactive Lymphocytes 0 Platelet Estimate Adequate Sodium Level 136 mmol/L (136-145) Potassium Level 4.0 mmol/L (3.5-5.1) Chloride Level 101 mmol/L (98-107) Carbon Dioxide Level 26 mmol/L (20-31) Anion Gap 9 (5-15) Blood Urea Nitrogen 8 mg/dL (9-23) Creatinine 0.78 mg/dL (0.700-1.30) Glomerular Filtration Rate Calc 91 mL/min (>90) BUN/Creatinine Ratio 10.3 (10.0-20.0) Serum Glucose 139 mg/dL (74-106) Calcium Level 9.3 mg/dL (8.7-10.4) Prothrombin Time 11.4 sec (9.3-11.8) Prothrombin Time INR 1.08 (0.9-1.15) Activated Partial Thromboplast Time 30.3 SEC (24.5-34.5) Lactic Acid Level 0.9 mmol/L (0.4-2.0) Hemoglobin A1c 6.0 % A1C (<5.7) Magnesium Level 1.8 mg/dL (1.6-2.6) Thyroid Stimulating Hormone (TSH) 0.60 uIU/mL (0.55-4.78) POC Glucose 180 mg/dl (70-106) Test 02/28/25 10:47 02/28/25 10:40 Erythrocyte Sedimentation Rate 14 mm/hr (0-20) Total Bilirubin 0.6 mg/dL (0.2-1.0) Aspartate Amino Transferase (AST) 34 U/L (13-40) Alanine Aminotransferase (ALT) 40 U/L (7-40) Alkaline Phosphatase 99 U/L (46-116) Troponin I High Sensitivity 7 ng/L (</=54) C-Reactive Protein High Sensitivity 3.83 mg/dL (<1.0) B-Type Natriuretic Peptide 164.68 pg/mL (0-100) Total Protein 7.5 g/dL (5.7-8.2) Albumin 4.7 g/dL (3.2-4.8) Vitamin B12 Level 450 pg/mL (211-911) Vitamin D 25-Hydroxy 31.2 ng/mL (30.0-100) Influenza Type A Antigen Negative (Negative) Influenza Type B Antigen Negative (Negative) SARS-CoV-2 Antigen (Rapid) Positive (NEGATIVE) Other Laboratory Tests 03/01/25 05:40 Brief Hx & Hospital Course: 79-year-old male with a known history of CAD status post PCI with a one drug eluting stent, diabetes mellitus type 2, hypertension, dyslipidemia , congestive heart failure initially presented to the hospital with shortness of breaths , cough, sneezing, flu-like symptoms found to have acute viral pneumonia with a positive COVID-19 and maybe suspected Gram-positive and Gram-negative pneumonia. Patient does have known history of CAD status post PCI with a drug-eluting stent. Patient's hospital course was uneventful patient is currently on room air patient is being discharged under stable condition on p.o. antibiotics and p.r.n. inhaler. Home health home safety evaluation will be arranged as per social sciences instructor. Condition at Discharge: Stable Final Diagnosis/Problems List 79-year-old male with a known history of CAD status post PCI with a one drug eluting stent, diabetes mellitus type 2, hypertension, dyslipidemia , congestive heart failure initially presented to the hospital with shortness of breaths , cough, sneezing, flu-like symptoms found to have 1. Acute viral pneumonia with a positive COVID-19 2. Suspected Gram-positive/Gram-negative pneumonia 3. CAD status post PCI with a one drugs eluting stent 4. Congestive heart failure unspecified currently not in exacerbation 5. Diabetes mellitus type 2 6. Hypertension 7. Dyslipidemia Discharge Disposition: Home with Health Services SNF Discharge Will this Physician continue t: No Discharge Instruct/Medications Diet: Cardiac 2g Na,low cholest Activity: [id number] Activity comment: Keep isolation for 10 days Follow Up/Referral: Follow up with the PCP in one week Medications: Doxycycline and Ventolin inhaler as prescribed. Scheduled Doxycycline (Monohydrate) (Doxycycline), 100 MG PO BID Scheduled PRN Albuterol Sulfate (Ventolin Mdi), 90 MCG IN Q4HP PRN Discharge Statement: "Patient was advised to return to the ER or call 911 if any headaches, dizziness, shortness of breath, chest pain, abdominal pain, bleeding, fevers, or worsening of medical condition. Patient was counseled about treatment plan, medications, possible side effects, patientverbalized understanding. All questions were answered to the best of my ability. This discharge took greater then 30 minutes in planning, reviewing documentation, counseling the patient, and discussing with other team members." ASSESSMENT ASSESSMENT Assessment 79-year-old male with a known history of CAD status post PCI with a one drug eluting stent, diabetes mellitus type 2, hypertension, dyslipidemia , congestive heart failure initially presented to the hospital with shortness of breaths , cough, sneezing, flu-like symptoms found to have 1. Acute viral pneumonia with a positive COVID-19 2. Suspected Gram-positive/Gram-negative pneumonia 3. CAD status post PCI with a one drugs eluting stent 4. Congestive heart failure unspecified currently not in exacerbation 5. Diabetes mellitus type 2 6. Hypertension 7. Dyslipidemia Date of Service: Mar 02, 2025 Billing Provider: EVER RECIO MD Common Visit Codes: [id number]/[id number] DISCH DAY >30min EVER RECIO MD Mar 02, 2025 16:22
--- NOTE | 2025-03-02 16:33 | DVH ---
CHEST RADIOGRAPH Indication: +COVID Technique: Single frontal view of the chest was obtained COMPARISON: XY CHEST XRAY 1 VIEW on DOS: 02/28/25 FINDINGS: Lines and Tubes: Median sternotomy Lungs: Clear Pleura: No effusion. No pneumothorax. Cardiomediastinal contours: Unremarkable Bones: Unremarkable IMPRESSION: No acute disease.
[2025-03-02 16:56] LABS: COVID19 ANTIGEN SOFIA FIA NEGATIVE (NEGATIVE)
[2025-03-03] VITALS (8 sets, daily range): BP systolic 161–162; BP diastolic 77–103; PULSE 78–82; RESP 15–18; TEMP 97.4–98.2; O2SAT 94–98
--- NOTE | 2025-03-03 12:36 | DVHPN2 ---
Reviewed: Care Plan, H&P, Labs, Medications, Previous Orders, Radiology Changes from previous H/P or p: No Changes Cardiovascular: Edema Respiratory: Cough, Dry, Shortness of breath Objective Vitals Vital Signs Date Time Temp Pulse Resp B/P (MAP) Pulse Ox O2 Delivery O2 Flow Rate FiO2 03/03/25 10:18 97 Room Air 03/03/25 10:18 0 21 03/03/25 09:28 80 162/90 03/03/25 09:00 97.7 18 97.7 Intake/Output Intake and Output 03/03/25 07:00 Intake Total 1330 ml Output Total 550 ml Balance 780 ml Intake Oral 1230 ml IV Total 100 ml Output Urine Total 550 ml # Voids 2 Medications Current Medications Medications Dose Ordered Sig/Anna Route Start Time Stop Time Status Last Admin Dose Admin Ceftriaxone Sodium 50 ml @ 100 mls/hr DAILY@09 IV 03/01/25 09:00 03/03/25 09:23 100 MLS/HR Losartan Potassium 100 mg DAILY PO 03/01/25 10:00 03/03/25 09:28 100 MG Metoprolol Succinate 50 mg DAILY PO 03/01/25 10:00 03/03/25 09:28 50 MG Spironolactone 25 mg DAILY PO 03/01/25 10:00 03/03/25 09:27 25 MG Atorvastatin Calcium 20 mg HS PO 02/28/25 22:00 03/02/25 21:54 20 MG Ipratropium [place] 0.5 mg Q6HWA NEB 02/28/25 14:00 UNV Albuterol 2.5 mg Q6HR NEB 02/28/25 14:00 UNV Acetaminophen 500 mg Q4HPRN PRN PO 02/28/25 14:00 03/03/25 02:31 500 MG Acetaminophen/ Hydrocodone Bitart 1 tab Q6HPRN PRN PO 02/28/25 14:00 Morphine Sulfate 1 mg Q4HPRN PRN IV 02/28/25 14:00 Albuterol 180 mcg TID IN 02/28/25 22:00 03/03/25 05:29 180 MCG Doxycycline Hyclate 100 ml @ 50 mls/hr Q12H IV 03/01/25 12:45 03/03/25 00:05 50 MLS/HR Hydralazine HCl 10 mg Q4HP PRN IV 03/01/25 12:45 03/02/25 15:50 10 MG Cholecalciferol 4,000 unit DAILY PO 03/01/25 16:45 03/03/25 09:23 4,000 UNIT Ascorbic Acid 1,000 mg DAILY PO 03/01/25 16:45 03/03/25 09:26 1,000 MG Zinc Sulfate 220 mg DAILY PO 03/02/25 10:00 03/03/25 09:26 220 MG Laboratory Results Laboratory Tests 03/01/25 05:40 Microbiology Microbiology Date/Time Source Procedure Growth Status 03/01/25 00:27 Nose MRSA Screen - Final Complete Labs and/or images reviewed: Labs reviewed by me, Image(s) reviewed by me Assessment/Plan Assessment/Plan Covering for Dr Jones 1. Acute viral pneumonia with a positive COVID-19 2. Suspected Gram-positive/Gram-negative pneumonia 3. CAD status post PCI with a one drugs eluting stent 4. Congestive heart failure unspecified currently not in exacerbation 5. Diabetes mellitus type 2 6. Hypertension 7. Dyslipidemia Discharged on 03/02/2025, social studies teacher could not arrange home health as he is out of state from [place] Discharge plan Changed from home health to home and discharged Examined today. No new complaints Plan discussed with: Patient My Orders Orders - SHAWN GODOY MD Procedure Category Date Status Time Discharge DISCHARGE 03/03/25 Transmitted 12:31 * [employer] CONS 03/03/25 Transmitted Consult 12:32 Date of Service: Mar 03, 2025 Billing Provider: SHAWN GODOY MD Common Visit Codes: [id number] INP/OBS CARE(HIGH) SHAWN GODOY MD Mar 03, 2025 12:36
--- NOTE | 2025-03-05 21:19 | DVHPN2 ---
Consult Progress Note Objective vital signs Vital Sign Date Time Temp Pulse Resp B/P (MAP) Pulse Ox O2 Delivery O2 Flow Rate FiO2 03/03/25 14:38 80 16 162/90 95 21 03/03/25 13:41 98.2 03/03/25 10:18 Room Air 03/03/25 10:18 0 medications Current Medications Medications Dose Ordered Sig/Anna Route Start Time Stop Time Status Last Admin Dose Admin Ipratropium [place] 0.5 mg Q6HWA [facility] 02/28/25 14:00 UNV Albuterol 2.5 mg Q6HR [facility] 02/28/25 14:00 UNV laboratory and microbiology Laboratory Tests 03/01/25 05:40 Test 03/01/25 05:40 Range/Units Serum Glucose 139 H 74-106 mg/dL SAM ALVARADO MD Mar 05, 2025 21:19
== END 2025-03-03 14:57 | disposition home health service (06) | DRG 871 ==
LOC: ER 08:48 → OVERFLOW 13:07 → TELE-WESTW 15:52
PROVIDERS: ADMIT Family Medicine; ATTEND Family Medicine
DX: A41.9 Sepsis, unspecified organism (principal); J12.82 Pneumonia due to coronavirus disease 2019; J15.69 Pneumonia due to other Gram-negative bacteria; J15.9 Unspecified bacterial pneumonia; U07.1 COVID-19; I50.22 Chronic systolic (congestive) heart failure; E11.9 Type 2 diabetes mellitus without complications; E78.5 Hyperlipidemia, unspecified; I25.10 Atherosclerotic heart disease of native coronary artery without angina pectoris; I11.0 Hypertensive heart disease with heart failure; Z87.891 Personal history of nicotine dependence; Z82.49 Family history of ischemic heart disease and other diseases of the circulatory system; Z95.5 Presence of coronary angioplasty implant and graft; Z79.899 Other long term (current) drug therapy
CPT/HCPCS: 36415; 71045; 80048; 80053; 82306; 82607; 82962; 83036; 83605; 83735; 83880; 84443; 84484; 85007; 85027; 85610; 85652; 85730; 86141; 87081; 87426; 87804; 93306; 94640; 96365; 96368; G0378